=== PATIENT | female | born 1960 | race Caucasian/White ===

== ENCOUNTER 2016-12-29 18:52 | Observation (INO) | payer MEDICAID, SELFPAY ==
[2016-12-29 20:19] LABS: BASO # 0.02 K/mm3 (0.0-2.0); BASO % 0.3 % (0.0-3.0); EOS # 0.1 (0.0-0.7); EOS % 2.3 % (1.5-5.0); GRAN # 3.14 (1.4-6.5); GRAN % 50.8 % (50.0-68.0); HEMATOCRIT 34.3 % (36.0-48.0); LYMPH # 2.4 (1.2-3.4); LYMPH % 38.2 % (22.0-35.0); MEAN CELL VOLUME 90.5 fl (80.0-105.0); MEAN CORPUSCULAR HEMOGLOBIN 30.1 pg (25.0-35.0); MEAN CORPUSCULAR HGB CONC 33.2 g/dl (31.0-37.0); MEAN PLATELET VOLUME 10.3 fl (7.0-11.0); MONO # 0.5 (0.1-0.6); MONO % 8.4 % (1.0-6.0); RED CELL DISTRIBUTION WIDTH 13.1 % (11.5-14.5); WHITE BLOOD COUNT 6.2 10^3/ul (4.5-11.0)
--- NOTE | 2016-12-29 20:19 | ED PDOC ---
Arrival/HPI - General Chief Complaint: High Blood Pressure Time Seen by Provider: 12/29/16 19:13 Historian: Patient - History of Present Illness Narrative History of Present Illness (Text): 12/29/16 20:16 56yo female with history of hypertension present with complaint of elevated BP, chest pain. The daughter who was by the bedside notes that patient's BP is usually around 170/80's. States patient became dizzy, diaphoretic at work and check her BP and it was elevated. Started having nonexertional chest pain afterwards. Pt is currently on HTZ 12.5mg. Daughter states she recently change her PMD. Denies headache, focal weakness, tearing/ripping upper back pain, abdominal pain, nausea, vomiting, visual change, GIBBONS, any other complaint. Past Medical History - Provider Review Nursing Documentation Reviewed: Yes - Infectious Disease Hx of Infectious Diseases: None - Tetanus Immunization Tetanus Immunization: Unknown - Reproductive Menopause: Yes - Cardiac Hx Cardiac Disorders: Yes Hx Hypertension: Yes - Pulmonary Hx Chronic Obstructive Pulmonary Disease (COPD): No - Neurological Hx Parkinson's Disease: No - HEENT Hx Macular Degeneration: No - Renal Hx Renal Cancer: No - Endocrine/Metabolic Hx Endocrine Disorders: No - Hematological/Oncological Hx Anemia: No - Integumentary Hx Melanoma: No - Musculoskeletal/Rheumatological Hx Falls: No - Gastrointestinal Hx Diarrhea: No - Psychiatric Hx Depression: No Hx Emotional Abuse: No Hx Physical Abuse: No Hx Substance Use: No - Surgical History Hx Cholecystectomy: Yes Hx Hysterectomy: Yes (for fibroids) - Anesthesia Hx Anesthesia: Yes Hx Anesthesia Reactions: No - Suicidal Assessment Feels Threatened In Home Enviroment: No Family/Social History - Physician Review Nursing Documentation Reviewed: Yes Family/Social History: Unknown Family HX Smoking Status: Never Smoked Hx Alcohol Use: No Hx Substance Use: No Hx Substance Use Treatment: No Allergies/Home Meds Allergies/Adverse Reactions: Allergies No Known Allergies Allergy (Verified 12/29/16 19:06) Review of Systems - Physician Review All systems were reviewed & negative as marked: Yes - Review of Systems Constitutional: Normal Eyes: Normal ENT: Normal Respiratory: Normal Cardiovascular: Chest Pain Gastrointestinal: Normal Genitourinary Female: Normal Musculoskeletal: Normal Skin: Normal Neurological: Dizziness. absent: Focal Weakness, Gait Changes, Speech Changes, Facial Droop Endocrine: Normal Hemo/Lymphatic: Normal Psychiatric: Normal Physical Exam Vital Signs Reviewed: Yes Vital Signs Temp BP 12/29/16 19:05 198/104 H 12/29/16 18:52 97.9 F Temperature: Afebrile Blood Pressure: Hypertensive Pulse: Regular Respiratory Rate: Normal Appearance: Positive for: Well-Appearing, Non-Toxic, Comfortable Pain Distress: None Mental Status: Positive for: Alert and Oriented X 3 - Systems Exam Head: Present: Atraumatic, Normocephalic Pupils: Present: PERRL Extroacular Muscles: Present: EOMI Conjunctiva: Present: Normal Mouth: Present: Moist Mucous Membranes Neck: Present: Normal Range of Motion Respiratory/Chest: Present: Clear to Auscultation, Good Air Exchange. No: Respiratory Distress, Accessory Muscle Use Cardiovascular: Present: Regular Rate and Rhythm, Normal S1, S2. No: Murmurs Abdomen: Present: Normal Bowel Sounds. No: Tenderness, Distention, Peritoneal Signs Back: Present: Normal Inspection Upper Extremity: Present: Normal Inspection. No: Cyanosis, Edema Lower Extremity: Present: Normal Inspection. No: Edema Neurological: Present: GCS=15, CN II-XII Intact, Speech Normal, Motor Func Grossly Intact, Normal Sensory Function, Normal Cerebellar Funct, Norm Deep Tendon Reflexes, Gait Normal, Memory Normal, Normal 2Pt Descrimination, Other ( No focal neurological deficit) Skin: Present: Warm, Dry, Normal Color. No: Rashes Psychiatric: Present: Alert, Oriented x 3, Normal Insight, Normal Concentration Medical Decision Making ED Course and Treatment: 12/29/16 23:13 PT with history of uncontrolled medication controlling of substernal chest pain and dizziness. Her BP improved in ED without medication. Her first CE was negative. EKG Sinus anival @ 56bpm. No ST changes CXr NAD PT with ulysses pain and co morbidity needs OBS for further evaluation of her CP. ASA was given in ED Case was DW Dr. Nye and he accepted pt into the service Result and plan was DW both pt and the daughter and she agreed. - Lab Interpretations Lab Results: 12/29/16 20:05 12/29/16 20:05 Lab Results 12/29/16 20:05: Sodium 140, Potassium 4.3, Chloride 102, Carbon Dioxide 28, Anion Gap 14, BUN 23 H, Creatinine 1.1, Est GFR ( Amer) > 60, Est GFR ( Non-Af Amer) 51, Random Glucose 108, Calcium 9.5, Magnesium 1.9, Total Bilirubin 0.5, AST 24, ALT 33, Alkaline Phosphatase 80, Lactate Dehydrogenase 462, Total Creatine Kinase 75, Troponin I < 0.01, Total Protein 7.2, Albumin 4.2 , Globulin 2.9, Albumin/Globulin Ratio 1.4 12/29/16 20:05: PT 10.6, INR 0.97, APTT 32.2 12/29/16 20:05: WBC 6.2 D, RBC 3.79, Hgb 11.4 L, Hct 34.3 L, MCV 90.5, MCH 30.1 , MCHC 33.2, RDW 13.1, Plt Count 214, MPV 10.3, Gran % 50.8, Lymph % (Auto) 38.2 H, [place] % (Auto) 8.4 H, Eos % (Auto) 2.3, Baso % (Auto) 0.3, Gran # 3.14, Lymph # 2.4, [place] # 0.5, Eos # 0.1, Baso # 0.02 - RAD Interpretation Radiology Orders: 12/29/16 19:19 CHEST PORTABLE [RAD] Stat - Medication Orders Current Medication Orders: Aspirin (Ecotrin) 81 mg PO DAILY [facility] Hydralazine HCl (Apresoline) 10 mg IVP Q6 PRN PRN Reason: Systolic Blood Pressure Hydrochlorothiazide (Microzide) 12.5 mg PO DAILY [facility] Pantoprazole Sodium (Protonix Inj) 40 mg IVP DAILY [facility] Discontinued Medications Aspirin (Aspirin) 325 mg PO STAT STA Stop: 12/29/16 19:20 Last Admin: 12/29/16 20:11 Dose: 325 mg Meclizine HCl (Antivert) 25 mg PO STAT STA Stop: 12/29/16 19:21 Last Admin: 12/29/16 20:11 Dose: 25 mg Disposition/Present on Arrival - Present on Arrival Any Indicators Present on Arrival: No History of DVT/PE: No History of Uncontrolled Diabetes: No Urinary Catheter: No History of Decub. Ulcer: No History Surgical Site Infection Following: None - Disposition Have Diagnosis and Disposition been Completed?: Yes Diagnosis: Chest pain, Uncontrolled hypertension, Bradycardia Disposition: HOSPITALIZED Disposition Time: 20:45 Patient Problems: Current Active Problems Problem Status Onset Chest pain Acute Uncontrolled hypertension Acute Condition: FAIR
[2016-12-29 20:24] LABS: INR 0.97 (0.93-1.08); PARTIAL THROMBOPLASTIN TIME 32.2 Seconds (25.1-36.5)
[2016-12-29 20:28] LABS: ALB/GLOB RATIO 1.4 (1.1-1.8); ALKALINE PHOSPHATASE 80 U/L (38-126); ALT/SGPT 33 U/L (7-56); AST/SGOT 24 U/L (14-36); BILIRUBIN,TOTAL 0.5 mg/dL (0.2-1.3); BLOOD UREA NITROGEN 23 mg/dL (7-21); CALCIUM 9.5 mg/dL (8.4-10.5); CARBON DIOXIDE 28 mmol/L (21-33); CHLORIDE 102 mmol/L (98-107); GFR AFRICAN-AMERICAN > 60; GLUCOSE,RANDOM 108 mg/dL (70-110); MAGNESIUM 1.9 mg/dL (1.7-2.2); POTASSIUM 4.3 mmol/L (3.6-5.0); SODIUM 140 mmol/L (132-148); TOTAL PROTEIN 7.2 g/dL (5.8-8.3)
[2016-12-29 20:39] LABS: TROPONIN I < 0.01 ng/mL
--- NOTE | 2016-12-29 22:14 | CP.PCM.HP ---
<Daniel Velázquez - Last Filed: 12/30/16 23:10> History of Present Illness - History of Present Illness History of Present Illness: This is a 56 year old female with a past medical history of hypertension who comes in complaining of chest pain that began earlier this day. The patient states that the chest pain starts in the sternal area and radiates to the left arm. The patient is also reporting an elevated blood pressure that was checked at home and was 170's systolic. The patient denies any alleviating or modifying factors. The patient reports a headache in conjunction with the original symptoms. The patient denies any lightheadedness, dizziness abdominal pain, syncopal episodes, diaphoresis, numbness or tingling in the extremities, or any other complaints. PMD: Dr. Blankenship Past medical history: hypertension Medications: HCTZ Past surgical history: Cholecystectomy Allergies: NKDA Family history: Mom and Dad (Diabetes and Hypertension) Social history: Occasional alcohol drinker (Less than 2 beers a week). Denies smoking or illicit drug use. Present on Admission - Present on Admission Any Indicators Present on Admission: No Review of Systems - Constitutional Constitutional: absent: Chills, Night Sweats, Weight Loss - EENT Eyes: absent: Blurred Vision, Diplopia, Irritation, Requires Corrective Lenses, Sees Flashes, Other Visual Disturbances Ears: absent: Decreased Hearing, Ear Discharge, Disequilibrium, Dizziness Nose/Mouth/Throat: absent: Nasal Congestion, Nasal Discharge, Nasal Trauma, Nose Pain, Bleeding Gums, Mouth Lesions, Mouth Pain, Facial Pain - Cardiovascular Cardiovascular: Chest Pain, Chest Pain at Rest. absent: Diaphoresis, Edema, Irregular Heart Rhythm, Orthopnea, Pedal Edema, Syncope - Respiratory Respiratory: absent: Hemoptysis, Dyspnea on Exertion, Stridor, Pain on Inspiration - Gastrointestinal Gastrointestinal: absent: Abdominal Pain, Belching, Bloating, Diarrhea, Dysphagia, Heartburn, Hematochezia, Loose Stools, Melena, Nausea, Vomiting - Musculoskeletal Musculoskeletal: absent: Arthralgias, Myalgias, Stiffness, Tingling - Integumentary Integumentary: absent: Acne, Changing Lesions, Lesions, New Lesions, Striae, Swelling - Neurological Neurological: absent: Abnormal Hearing, Dizziness, Numbness, Vertigo, Weakness - Psychiatric Psychiatric: absent: Abnormal Sleep Pattern, Depression, Mood Swings, Panic Attacks - Endocrine Endocrine: absent: Deepening of Voice, Polydipsia, Polyphagia, Polyuria Past Patient History - Infectious Disease Hx of Infectious Diseases: None - Tetanus Immunizations Tetanus Immunization: Unknown - Past Social History Smoking Status: Never Smoked - CARDIAC Hx Cardiac Disorders: Yes Hx Hypertension: Yes - PULMONARY Hx Chronic Obstructive Pulmonary Disease (COPD): No - NEUROLOGICAL Hx Parkinson's Disease: No - HEENT Hx Macular Degeneration: No - RENAL Hx Renal (Kidney) Cancer: No - ENDOCRINE/METABOLIC Hx Endocrine Disorders: No - HEMATOLOGICAL/ONCOLOGICAL Hx Anemia: No - INTEGUMENTARY Hx Melanoma: No - MUSCULOSKELETAL/RHEUMATOLOGICAL Hx Falls: No - GASTROINTESTINAL Hx Diarrhea: No - PSYCHIATRIC Hx Depression: No Hx Emotional Abuse: No Hx Physical Abuse: No Hx Substance Use: No - SURGICAL HISTORY Hx Cholecystectomy: Yes Hx Hysterectomy: Yes (for fibroids) - ANESTHESIA Hx Anesthesia: Yes Hx Anesthesia Reactions: No Meds Allergies/Adverse Reactions: Allergies Allergy/AdvReac Type Severity Reaction Status Date / Time No Known Allergies Allergy Verified 12/29/16 19:06 Physical Exam - Head Exam Head Exam: ATRAUMATIC, NORMAL INSPECTION, NORMOCEPHALIC - Eye Exam Eye Exam: EOMI, Normal appearance, PERRL. absent: Periorbital tenderness Pupil Exam: NORMAL ACCOMODATION, PERRL. absent: Irregular, Unequal - ENT Exam ENT Exam: Mucous Membranes Moist, Normal Exam. absent: Normal Oropharynx, TM's Normal Bilaterally - Neck Exam Neck exam: Positive for: Normal Inspection. Negative for: Lymphadenopathy, Thyromegaly - Respiratory Exam Respiratory Exam: Clear to Auscultation Bilateral, NORMAL BREATHING PATTERN. absent: Chest Wall Tenderness, Prolonged Expiratory Phase, Wheezes, Respiratory Distress - Cardiovascular Exam Cardiovascular Exam: REGULAR RHYTHM, +S1, +S2. absent: Diastolic murmur, Gallop , JVD, Rubs - GI/Abdominal Exam GI & Abdominal Exam: Normal Bowel Sounds, Soft. absent: Organomegaly, Tenderness - Extremities Exam Extremities exam: Positive for: full ROM, normal inspection. Negative for: joint swelling, pedal edema, tenderness - Back Exam Back exam: NORMAL INSPECTION. absent: CVA tenderness (L), CVA tenderness (R), paraspinal tenderness - Neurological Exam Neurological exam: Alert, CN II-XII Intact, Oriented x3 - Psychiatric Exam Psychiatric exam: Normal Affect, Normal Mood - Skin Skin Exam: Dry, Intact, Normal Color Results - Vital Signs Recent Vital Signs: Last Vital Signs Temp 97.9 F 12/29/16 18:52 Pulse Resp BP 198/104 H 12/29/16 19:05 Pulse Ox - Labs Result Diagrams: 12/30/16 04:25 12/30/16 04:25 Assessment & Plan - Assessment and Plan (Free Text) Assessment: This is a 56 year old female with a past medical history of hypertension who is being admitted for chest pain. Plan: 1.Chest pain r/o ACS -Troponins (-)x1. Trend Troponins. -Cardiology consulted. Will f/u with rec's. -TSH, Hemoglobin A1C, Lipid panel ordered. F/u with results. -Repeat EKG in the A.M. F/u with results. 2. Hypertensive urgency -BP 198 systolic upon admission. -Goal is to reduce systolic by no more than 20% within the first 24 hours. -PRN hydralazine ordered. -Will monitor closely. GI ppx -Protonix DVT ppx -SCD's <John Nye - Last Filed: 12/31/16 19:27> Results - Vital Signs Recent Vital Signs: Last Vital Signs Temp 97.7 F 12/31/16 06:00 Pulse 64 12/31/16 12:00 Resp 18 12/31/16 12:00 BP 129/87 12/31/16 12:00 Pulse Ox 98 12/31/16 06:00 - Labs Result Diagrams: 12/31/16 06:15 12/31/16 06:15 Labs: Laboratory Results - last 24 hr 12/31/16 12/31/16 06:15 06:15 WBC 5.2 RBC 4.49 Hgb 13.4 Hct 40.6 MCV 90.4 MCH 29.8 MCHC 33.0 RDW 13.1 Plt Count 213 MPV 10.4 Gran % 48.7 L Lymph % (Auto) 37.1 H [place] % (Auto) 10.3 H Eos % (Auto) 3.5 Baso % (Auto) 0.4 Gran # 2.51 Lymph # 1.9 Park # 0.5 Eos # 0.2 Baso # 0.02 Sodium 140 Potassium 4.1 Chloride 102 Carbon Dioxide 27 Anion Gap 15 BUN 23 H Creatinine 0.8 Est GFR ( Amer) > 60 Est GFR (Non-Af Amer) > 60 Random Glucose 97 Calcium 9.6 Total Bilirubin 0.9 AST 31 ALT 29 Alkaline Phosphatase 68 Total Protein 7.7 Albumin 4.4 Globulin 3.4 Albumin/Globulin Ratio 1.3 Attending/Attestation - Attestation I have personally seen and examined this patient.: Yes I have fully participated in the care of the patient.: Yes I have reviewed all pertinent clinical information: Yes Notes (Text): 12/31/16 19:26 Patient was seen when she was in the ER. Medical record was reviewed. Agree with history , physical examination, assessment and plan.
[2016-12-29 23:43] LABS: CHOLESTEROL 196 mg/dL (130-200)
[2016-12-30 00:13] VITALS: BMI 28.1
[2016-12-30 00:39] LABS: PH,URINE 5.5 (4.7-8.0); URINE BILIRUBIN NEGATIVE (NEGATIVE); URINE BLOOD TRACE-INTACT (NEGATIVE); URINE GLUCOSE (UA) NEGATIVE (NEGATIVE); URINE KETONE NEGATIVE (NEGATIVE); URINE LEUKOCYTE ESTERASE NEGATIVE Leu/uL (NEGATIVE); URINE PROTEIN NEGATIVE mg/dL (<30 mg/dL); URINE UROBILINOGEN 0.2 E.U./dL (<1 E.U./dL)
[2016-12-30 01:02] LABS: URINE APPEARANCE CLEAR (CLEAR); URINE COLOR YELLOW (YELLOW)
[2016-12-30 01:15] LABS: URINE EPITHELIAL CELLS 0 - 2 /hpf (0-5); URINE RBC 0 - 2 /hpf (0-2); URINE WBC 0 - 2 /hpf (0-6)
[2016-12-30 01:16] LABS: URINE BACTERIA FEW (NEG)
[2016-12-30 04:50] LABS: ALB/GLOB RATIO 1.4 (1.1-1.8); ALKALINE PHOSPHATASE 68 U/L (38-126); ALT/SGPT 20 U/L (7-56); AST/SGOT 24 U/L (14-36); BILIRUBIN,TOTAL 0.8 mg/dL (0.2-1.3); BLOOD UREA NITROGEN 21 mg/dL (7-21); CALCIUM 9.8 mg/dL (8.4-10.5); CARBON DIOXIDE 29 mmol/L (21-33); CHLORIDE 102 mmol/L (98-107); GFR AFRICAN-AMERICAN > 60; GLUCOSE,RANDOM 98 mg/dL (70-110); POTASSIUM 4.2 mmol/L (3.6-5.0); SODIUM 139 mmol/L (132-148); TOTAL PROTEIN 7.3 g/dL (5.8-8.3)
[2016-12-30 04:51] LABS: BASO # 0.03 K/mm3 (0.0-2.0); BASO % 0.6 % (0.0-3.0); EOS # 0.2 (0.0-0.7); EOS % 3.2 % (1.5-5.0); GRAN # 2.31 (1.4-6.5); GRAN % 43.5 % (50.0-68.0); LYMPH # 2.3 (1.2-3.4); LYMPH % 43.6 % (22.0-35.0); MEAN CELL VOLUME 91.1 fl (80.0-105.0); MEAN CORPUSCULAR HEMOGLOBIN 29.3 pg (25.0-35.0); MEAN CORPUSCULAR HGB CONC 32.2 g/dl (31.0-37.0); MEAN PLATELET VOLUME 10.5 fl (7.0-11.0); MONO # 0.5 (0.1-0.6); MONO % 9.1 % (1.0-6.0); RED CELL DISTRIBUTION WIDTH 13.1 % (11.5-14.5); WHITE BLOOD COUNT 5.3 10^3/ul (4.5-11.0)
[2016-12-30 05:21] LABS: TROPONIN I < 0.01 ng/mL
--- NOTE | 2016-12-30 10:29 | RAD ---
HISTORY: admission COMPARISON: 02/03/2013 FINDINGS: LUNGS: No consolidation. Tiny 1 to 3 mm left upper lobe nodular opacities -tiny granulomas are a consideration. Probably similar allowing for differences in technique. PLEURA: No significant pleural effusion identified, no pneumothorax apparent. CARDIOVASCULAR: Top now OSSEOUS STRUCTURES: Bilateral shoulder arthrosis. VISUALIZED UPPER ABDOMEN: Normal. OTHER FINDINGS: None. IMPRESSION: No infiltrate. Probable granulomatous change left upper lobe. Bilateral shoulder arthrosis
--- NOTE | 2016-12-30 13:29 | CP.PCM.PN ---
<Nabor Pratt - Last Filed: 12/30/16 13:22> Subjective - Date & Time of Evaluation Date of Evaluation: 12/30/16 Time of Evaluation: 13:22 - Subjective Subjective: Patient seen and examined at bedside with family at bedside. Patient was admitted overnight for elevated hypertension and chest discomfort after work. No acute events overnight reported via patient. Patient states her chest discomfort has reduced since her admission. Patient denies shortness of breath, abdominal pain, fever, nausea, vomiting, chills. Objective - Vital Signs/Intake and Output Vital Signs (last 24 hours): Temp Pulse Resp BP Pulse Ox 98 F 74 21 100/61 100 12/30/16 11:49 12/30/16 11:49 12/30/16 11:49 12/30/16 11:49 12/30/16 05:54 Intake and Output: 12/30/16 12/30/16 06:59 18:59 Intake Total 120 Output Total 200 Balance -80 - Medications Medications: Current Medications Aspirin (Ecotrin) 81 mg PO DAILY [facility] Last Admin: 12/30/16 09:56 Dose: 81 mg Hydralazine HCl (Apresoline) 10 mg IVP Q6 PRN PRN Reason: Systolic Blood Pressure Hydrochlorothiazide (Hydrodiuril) 25 mg PO DAILY [facility] Pantoprazole Sodium (Protonix Inj) 40 mg IVP DAILY [facility] Last Admin: 12/30/16 09:56 Dose: 40 mg - Labs Labs: 12/30/16 04:25 12/30/16 04:25 PT 10.6 SECONDS (9.4-12.5) 12/29/16 20:05 INR 0.97 (0.93-1.08) 12/29/16 20:05 APTT 32.2 Seconds (25.1-36.5) 12/29/16 20:05 - Constitutional Appears: Well, No Acute Distress - Head Exam Head Exam: ATRAUMATIC, NORMAL INSPECTION, NORMOCEPHALIC - Eye Exam Eye Exam: EOMI, PERRL - ENT Exam ENT Exam: Mucous Membranes Moist - Neck Exam Neck Exam: Full ROM - Respiratory Exam Respiratory Exam: Clear to Ausculation Bilateral, NORMAL BREATHING PATTERN - Cardiovascular Exam Cardiovascular Exam: Bradycardia, REGULAR RHYTHM, +S1, +S2 - GI/Abdominal Exam GI & Abdominal Exam: Soft, Normal Bowel Sounds - Extremities Exam Extremities Exam: Full ROM, Normal Inspection - Back Exam Back Exam: NORMAL INSPECTION. absent: CVA tenderness (L), CVA tenderness (R) - Neurological Exam Neurological Exam: Alert, Awake, CN II-XII Intact, Normal Gait, Oriented x3 - Psychiatric Exam Psychiatric exam: Normal Affect, Normal Mood - Skin Skin Exam: Dry, Intact, Normal Color, Warm Assessment and Plan (1) Bradycardia Status: Acute (2) Chest pain Status: Acute (3) Uncontrolled hypertension Status: Acute - Assessment and Plan (Free Text) Assessment: 56 year old female with a past medical history of hypertension who was admitted for chest pain with rule out of ACS. Cardiology has been consulted and will evaluate the patient with echocardiogram and stress test. Plan: 1. Chest Pain rule out ACS - EKG on admission, interpreted by me, showing sinus bradycardia, No ST segment changes, T wave inversions - Troponins have been negative x3 - Cardiology (Dr. Bernabe) consulted and appreciate recs - Echocardiogram, pending results - Potential stress test for tomorrow - TSH nml, HgA1c 5.4 - Cholesterol panel: CH 196/ TG 123 / LDL 106 / HDL 62 - Patient ACSVD risk 1.9% 2. Hypertension urgency - resolved - BP elevated on admission, systolic 190s, BP now normotensive - Increase HCTZ to 25mg Daily - PRN hyrdralazine 3. Bradycardia - Etiology unkown, diff dx: Hypothyroid vs. Medication effect - TSH normal, medication at home is HCTZ - Asymptomatic - Appropriate increase when ambulating - continue to monitor PPX - GI: protonix - DVT: pt ambulating Patient case and plan reviewed and agreed upon by attending <Yogesh Jewell - Last Filed: 12/30/16 13:55> Objective - Vital Signs/Intake and Output Vital Signs (last 24 hours): Temp Pulse Resp BP Pulse Ox 98 F 74 21 100/61 100 12/30/16 11:49 12/30/16 11:49 12/30/16 11:49 12/30/16 11:49 12/30/16 05:54 Intake and Output: 12/30/16 12/30/16 06:59 18:59 Intake Total 120 Output Total 200 Balance -80 - Medications Medications: Current Medications Aspirin (Ecotrin) 81 mg PO DAILY [facility] Last Admin: 12/30/16 09:56 Dose: 81 mg Hydralazine HCl (Apresoline) 10 mg IVP Q6 PRN PRN Reason: Systolic Blood Pressure Hydrochlorothiazide (Hydrodiuril) 25 mg PO DAILY [facility] - Labs Labs: 12/30/16 04:25 12/30/16 04:25 PT 10.6 SECONDS (9.4-12.5) 12/29/16 20:05 INR 0.97 (0.93-1.08) 12/29/16 20:05 APTT 32.2 Seconds (25.1-36.5) 12/29/16 20:05 Attending/Attestation - Attestation I have personally seen and examined this patient.: Yes I have fully participated in the care of the patient.: Yes I have reviewed all pertinent clinical information, including history, physical exam and plan: Yes Notes (Text): 12/30/16 13:54 Patient was seen and examined with medical technician assistant. Agreed with resident assessment and plan. 56 year old female with a past medical history of hypertension, Obesity is admitted with exertional chest pain, EKG is negative for ischemic changes.Patient troponins are normal.She is scheduled for stress test tomorrow. Management plan was discussed in detail with patient Education was provided.
--- NOTE | 2016-12-30 15:35 | CON ---
DATE: 12/30/2016 REQUESTING PHYSICIAN: Dr. Jewell. REASON FOR CONSULTATION: Chest pain. HISTORY OF PRESENT ILLNESS: This is a 56-year-old woman with a history of hypertension, who presented to the emergency room yesterday with complaints of chest discomfort. Cardiac evaluation was requested. She is seen in the presence of her daughter. She is currently pain free. She apparently underwent a stress test 4 to 5 years ago and was told this was unremarkable. In the emergency room, she was noted to have a markedly elevated blood pressure of 170 to 190 systolic. She denied any headaches. She states she was at work. 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 She described a retrosternal chest discomfort, which was pressure like and radiating to her back. Initial echocardiogram and cardiac enzymes have been negative. PAST MEDICAL HISTORY: Notable for the problems mentioned above. She has undergone a prior cholecystectomy as well as a hysterectomy. MEDICATIONS AT HOME: Hydrochlorothiazide 12.5 mg daily. ALLERGIES: NONE. FAMILY HISTORY: Both parents are , cause unknown. SOCIAL HISTORY: She does not smoke or drink. REVIEW OF SYSTEMS: A 10-point review of systems is otherwise unremarkable. PHYSICAL EXAMINATION: GENERAL: She is an anxious-appearing middle-aged woman. VITAL SIGNS: Her blood pressure is 132/76 with a pulse of 50 to 60 in sinus rhythm, respirations are 16, she is afebrile. HEENT: Normocephalic, atraumatic. NECK: Supple. No JVD noted. CHEST: Clear to auscultation and percussion. HEART: PMI in normal position. No pathological gallops noted. ABDOMEN: Soft, nontender. Normoactive bowel sounds. EXTREMITIES: No clubbing, cyanosis, or edema. SKIN: Warm and dry. PSYCHIATRIC: Normal mood and affect. NEUROLOGIC: Alert and oriented x3. No gross motor or sensory is appreciable. DIAGNOSTIC DATA: Electrocardiogram reveals sinus rhythm with nonspecific ST-T abnormalities. Chest x-ray reveals normal cardiac silhouette with clear lung trivedi. White count 5.3, hemoglobin and hematocrit 11.9 and 37.0 with a platelet count of 206,000. PT/PTT were normal. Potassium of 4.2. BUN and creatinine 21 and 0.9. Two sets of cardiac enzymes are normal. Cholesterol is 196 with an LDL of 106, HDL of 62, triglycerides of 123. IMPRESSION: 1. Chest pain somewhat suspicious for angina by description. 2. History of hypertension with accelerated pattern at the present time. 3. Borderline hyperlipidemia. RECOMMENDATIONS: An echocardiogram will be obtained to assess her left ventricular size and function. If her followup cardiac enzymes are negative, an outpatient stress test can be planned. If she needs to remain in the hospital overnight for adjustment of her antihypertensive therapy, her stress test will be planned for the morning. Thank you for this consultation. I will be happy to follow as needed. Jose J Nelson MD
[2016-12-30 16:44] VITALS: O2SAT 98
--- NOTE | 2016-12-30 16:57 | CARD ---
APPROVED REPORT EKG Measurement Heart [id number] <Conclusion> Marked sinus bradycardia Abnormal ECG
--- NOTE | 2016-12-30 17:06 | CARD ---
APPROVED REPORT EKG Measurement Heart [id number] <Conclusion> Sinus bradycardia Otherwise normal ECG
[2016-12-31 06:09] VITALS: TEMP 97.7
[2016-12-31 06:40] LABS: BASO # 0.02 K/mm3 (0.0-2.0); BASO % 0.4 % (0.0-3.0); EOS # 0.2 (0.0-0.7); EOS % 3.5 % (1.5-5.0); GRAN # 2.51 (1.4-6.5); GRAN % 48.7 % (50.0-68.0); HEMATOCRIT 40.6 % (36.0-48.0); LYMPH # 1.9 (1.2-3.4); LYMPH % 37.1 % (22.0-35.0); MEAN CELL VOLUME 90.4 fl (80.0-105.0); MEAN CORPUSCULAR HEMOGLOBIN 29.8 pg (25.0-35.0); MEAN PLATELET VOLUME 10.4 fl (7.0-11.0); MONO # 0.5 (0.1-0.6); MONO % 10.3 % (1.0-6.0); RED CELL DISTRIBUTION WIDTH 13.1 % (11.5-14.5); WHITE BLOOD COUNT 5.2 10^3/ul (4.5-11.0)
[2016-12-31 06:57] LABS: ALB/GLOB RATIO 1.3 (1.1-1.8); ALKALINE PHOSPHATASE 68 U/L (38-126); ALT/SGPT 29 U/L (7-56); AST/SGOT 31 U/L (14-36); BILIRUBIN,TOTAL 0.9 mg/dL (0.2-1.3); BLOOD UREA NITROGEN 23 mg/dL (7-21); CALCIUM 9.6 mg/dL (8.4-10.5); CARBON DIOXIDE 27 mmol/L (21-33); CHLORIDE 102 mmol/L (98-107); GFR AFRICAN-AMERICAN > 60; GLUCOSE,RANDOM 97 mg/dL (70-110); POTASSIUM 4.1 mmol/L (3.6-5.0); SODIUM 140 mmol/L (132-148); TOTAL PROTEIN 7.7 g/dL (5.8-8.3)
--- NOTE | 2016-12-31 07:39 | CARD ---
APPROVED REPORT EXAM: Two-dimensional and M-mode echocardiogram with Doppler and color Doppler. Other Information Quality : AverageRhythm : INDICATION Hypertension/HCVD Chest Pain 2D DIMENSIONS Left Atrium (2D)4.3 (1.6-4.0cm)IVSd0.9 (0.7-1.1cm) LVDd4.3 (3.9-5.9cm)PWd1.0 (0.7-1.1cm) LVDs3.0 (2.5-4.0cm)FS (%) 30.7 % LVEF (%)58.0 (>50%) M-Mode DIMENSIONS Aortic Root2.80 (2.2-3.7cm)Aortic Cusp Exc.1.70 (1.5-2.0cm) Aortic Valve AoV Peak Uythtcxv382.0cm/s Mitral Valve MV E Amplvyyw63.4cm/sMV A Phzrmigt30.7cm/sE/A ratio0.9 TDI Lateral E' Peak V10.30cm/sMedial E' Peak V5.85cm/sE/Lateral E'8.2 E/Medial E'14.4 Pulmonary Valve PV Peak Rjzccfcf96.7cm/sPV Peak Grad.4mmHg Tricuspid Valve TR Peak Idceurex611sh/sRAP [id number] Peak Gr.30mmHg [id number] LEFT VENTRICLE The left ventricle is normal size. There is normal left ventricular wall thickness. The left ventricular function is normal. The left ventricular ejection fraction is within the normal range. There is normal LV segmental wall motion. RIGHT VENTRICLE The right ventricle is normal size. ATRIA The left atrium is mildly dilated. The right atrium size is normal. The interatrial septum is intact with no evidence for an atrial septal defect. AORTIC VALVE The aortic valve is normal in structure. MITRAL VALVE The mitral valve is normal in structure. Mitral regurgitation is mild. TRICUSPID VALVE The tricuspid valve is normal in structure. There is mild tricuspid regurgitation. PULMONIC VALVE The pulmonic valve is not well visualized. GREAT VESSELS The aortic root is normal in size. PERICARDIAL EFFUSION There is no pericardial effusion. <Conclusion> The left ventricle is normal size. There is normal left ventricular wall thickness. The left ventricular function is normal. Mitral regurgitation is mild. There is mild tricuspid regurgitation.
--- NOTE | 2016-12-31 07:47 | CP.PCM.PN ---
Subjective - Date & Time of Evaluation Date of Evaluation: 12/31/16 Time of Evaluation: 07:00 - Subjective Subjective: Stable on 2R. No chest pain or SOB. V/S noted. RSR 131/86 PE: Lungs: clear Cor: S1S2 Abd.: soft Ext. no edema Neuro.: alert ECG's and labs noted. Trops all neg. Echo: Nl LV fx., Mild MR and TR. Objective - Vital Signs/Intake and Output Vital Signs (last 24 hours): Temp Pulse Resp BP Pulse Ox 97.7 F 47 L 20 131/86 98 12/31/16 06:00 12/31/16 06:00 12/31/16 06:00 12/31/16 06:00 12/31/16 06:00 Intake and Output: 12/31/16 12/31/16 06:59 18:59 Intake Total 360 Balance 360 - Medications Medications: Current Medications Acetaminophen (Tylenol 325mg Tab) 650 mg PO Q6H PRN PRN Reason: Fever >100.4 F or Headache Last Admin: 12/30/16 16:51 Dose: 650 mg Aspirin (Ecotrin) 81 mg PO DAILY [facility] Last Admin: 12/30/16 09:56 Dose: 81 mg Hydralazine HCl (Apresoline) 10 mg IVP Q6 PRN PRN Reason: Systolic Blood Pressure Hydrochlorothiazide (Hydrodiuril) 25 mg PO DAILY [facility] - Labs Labs: 12/31/16 06:15 12/31/16 06:15 PT 10.6 SECONDS (9.4-12.5) 12/29/16 20:05 INR 0.97 (0.93-1.08) 12/29/16 20:05 APTT 32.2 Seconds (25.1-36.5) 12/29/16 20:05 Assessment and Plan - Assessment and Plan (Free Text) Assessment: Chest Pain HBP H/O GB surgery and hysterectomy Plan: Nuclear stress test today. Add amlodipne 5 mg. daily OOB Additional recs to follow ETT.
[2016-12-31 14:02] VITALS: BP 129/87; PULSE 64; RESP 18
--- NOTE | 2016-12-31 15:51 | CP.PCM.DIS ---
<Nabor Pratt - Last Filed: 12/31/16 15:48> Provider - Provider Date of Admission: 12/29/16 21:00 Attending physician: Yogesh Jewell MD Primary care physician: PMD: Dr. Blankenship Consults: Cardiology: Dr. Bernabe Time Spent in preparation of Discharge (in minutes): 25 Diagnosis - Discharge Diagnosis (1) Bradycardia Status: Acute (2) Chest pain Status: Acute (3) Uncontrolled hypertension Status: Acute Hospital Course - Lab Results Lab Results: Most Recent Lab Values WBC 5.2 10^3/ul (4.5-11.0) 12/31/16 06:15 RBC 4.49 10^6/uL (3.5-6.1) 12/31/16 06:15 Hgb 13.4 g/dL (12.0-16.0) 12/31/16 06:15 Hct 40.6 % (36.0-48.0) 12/31/16 06:15 MCV 90.4 fl (80.0-105.0) 12/31/16 06:15 MCH 29.8 pg (25.0-35.0) 12/31/16 06:15 MCHC 33.0 g/dl (31.0-37.0) 12/31/16 06:15 RDW 13.1 % (11.5-14.5) 12/31/16 06:15 Plt Count 213 10^3/uL (120.0-450.0) 12/31/16 06:15 MPV 10.4 fl (7.0-11.0) 12/31/16 06:15 Gran % 48.7 % (50.0-68.0) L 12/31/16 06:15 Lymph % (Auto) 37.1 % (22.0-35.0) H 12/31/16 06:15 Barron % (Auto) 10.3 % (1.0-6.0) H 12/31/16 06:15 Eos % (Auto) 3.5 % (1.5-5.0) 12/31/16 06:15 Baso % (Auto) 0.4 % (0.0-3.0) 12/31/16 06:15 Gran # 2.51 (1.4-6.5) 12/31/16 06:15 Lymph # 1.9 (1.2-3.4) 12/31/16 06:15 Barron # 0.5 (0.1-0.6) 12/31/16 06:15 Eos # 0.2 (0.0-0.7) 12/31/16 06:15 Baso # 0.02 K/mm3 (0.0-2.0) 12/31/16 06:15 PT 10.6 SECONDS (9.4-12.5) 12/29/16 20:05 INR 0.97 (0.93-1.08) 12/29/16 20:05 APTT 32.2 Seconds (25.1-36.5) 12/29/16 20:05 Sodium 140 mmol/L (132-148) 12/31/16 06:15 Potassium 4.1 mmol/L (3.6-5.0) 12/31/16 06:15 Chloride 102 mmol/L (98-107) 12/31/16 06:15 Carbon Dioxide 27 mmol/L (21-33) 12/31/16 06:15 Anion Gap 15 (10-20) 12/31/16 06:15 BUN 23 mg/dL (7-21) H 12/31/16 06:15 Creatinine 0.8 mg/dL (0.7-1.2) 12/31/16 06:15 Est GFR ( Amer) > 60 12/31/16 06:15 Est GFR (Non-Af Amer) > 60 12/31/16 06:15 Random Glucose 97 mg/dL (70-110) 12/31/16 06:15 Hemoglobin A1c 5.4 % (4.2-6.5) 12/29/16 20:05 Calcium 9.6 mg/dL (8.4-10.5) 12/31/16 06:15 Magnesium 1.9 mg/dL (1.7-2.2) 12/29/16 20:05 Total Bilirubin 0.9 mg/dL (0.2-1.3) 12/31/16 06:15 AST 31 U/L (14-36) 12/31/16 06:15 ALT 29 U/L (7-56) 12/31/16 06:15 Alkaline Phosphatase 68 U/L (38-126) 12/31/16 06:15 Lactate Dehydrogenase 462 U/L (333-699) 12/29/16 20:05 Total Creatine Kinase 75 U/L (35-230) 12/29/16 20:05 Troponin I < 0.01 ng/mL 12/30/16 11:30 Total Protein 7.7 g/dL (5.8-8.3) 12/31/16 06:15 Albumin 4.4 g/dL (3.0-4.8) 12/31/16 06:15 Globulin 3.4 gm/dL 12/31/16 06:15 Albumin/Globulin Ratio 1.3 (1.1-1.8) 12/31/16 06:15 Triglycerides 123 mg/dL (35-160) 12/29/16 20:05 Cholesterol 196 mg/dL (130-200) 12/29/16 20:05 LDL Cholesterol Direct 106 mg/dL (0-129) 12/29/16 20:05 HDL Cholesterol 62 mg/dL (29-60) H 12/29/16 20:05 TSH 3rd Generation 2.38 mIU/mL (0.46-4.68) 12/30/16 04:25 Urine Color Yellow (YELLOW) 12/30/16 00:05 Urine Appearance Clear (CLEAR) 12/30/16 00:05 Urine pH 5.5 (4.7-8.0) 12/30/16 00:05 Ur Specific Buna 1.020 (1.005-1.035) 12/30/16 00:05 Urine Protein Negative mg/dL (<30 mg/dL) 12/30/16 00:05 Urine Glucose (UA) Negative mg/dL (NEGATIVE) 12/30/16 00:05 Urine Ketones Negative mg/dL (NEGATIVE) 12/30/16 00:05 Urine Blood Trace-intact (NEGATIVE) H 12/30/16 00:05 Urine Nitrate Negative (NEGATIVE) 12/30/16 00:05 Urine Bilirubin Negative (NEGATIVE) 12/30/16 00:05 Urine Urobilinogen 0.2 E.U./dL (<1 E.U./dL) 12/30/16 00:05 Ur Leukocyte Esterase Negative Gisel/uL (NEGATIVE) 12/30/16 00:05 Urine RBC 0 - 2 /hpf (0-2) 12/30/16 00:05 Urine WBC 0 - 2 /hpf (0-6) 12/30/16 00:05 Ur Epithelial Cells 0 - 2 /hpf (0-5) 12/30/16 00:05 Urine Bacteria Few (NEG) 12/30/16 00:05 - Hospital Course Hospital Course: Patient is a 56 year old female with past medical history of hypertension and borderline hyperlipidemia who presented to the [facility] ED complaining of chest discomfort. Patient was evaluated with EKG showing sinus bradycardia and trending of troponins all of which were negative x3. Cardiology was consulted and due to clinical picture and elevated HTN patient was evaluated with an echocardiogram which showed EF of 58%, no wall motion abnormalities and MR and a nuclear stress test that was normal. Cardiology evaluated the patient and recommended discharge with appropriate outpatient follow up. Patient was hemodynamicallystable and was agreeable and understanding to discharge planning. - Date & Time of H&P Date of H&P: 12/29/16 Time of H&P: 22:03 Discharge Exam - Head Exam Head Exam: ATRAUMATIC, NORMAL INSPECTION, NORMOCEPHALIC - Eye Exam Eye Exam: EOMI, PERRL Pupil Exam: NORMAL ACCOMODATION - ENT Exam ENT Exam: Mucous Membranes Moist - Neck Exam Neck exam: Full Rom - Respiratory Exam Respiratory Exam: Clear to PA & Lateral, NORMAL BREATHING PATTERN, UNREMARKABLE - Cardiovascular Exam Cardiovascular Exam: Bradycardia, REGULAR RHYTHM, +S1, +S2 - GI/Abdominal Exam GI & Abdominal Exam: Normal Bowel Sounds, Soft, Unremarkable. absent: Tenderness - Back Exam Back exam: NORMAL INSPECTION - Neurological Exam Neurological exam: Alert, CN II-XII Intact, Normal Gait, Oriented x3 - Psychiatric Exam Psychiatric exam: Normal Affect, Normal Mood - Skin Skin Exam: Dry, Intact, Normal Color, Warm Discharge Plan - Discharge Medications Prescriptions: hydroCHLOROthiazide [Hydrodiuril] 25 mg PO DAILY #30 tab - Follow Up Plan Condition: FAIR Disposition: HOME/ ROUTINE Instructions: Chest Pain (DC) Additional Instructions: 1. Please follow up with your primary medical doctor with in one week 2. Take medications as prescribed to you 3. Return to the hospital if your symptoms worsen or return <Yogesh Jewell - Last Filed: 01/01/17 15:49> Provider - Provider Date of Admission: 12/29/16 21:00 Attending physician: Yogesh Jewell MD Hospital Course - Lab Results Lab Results: Most Recent Lab Values WBC 5.2 10^3/ul (4.5-11.0) 12/31/16 06:15 RBC 4.49 10^6/uL (3.5-6.1) 12/31/16 06:15 Hgb 13.4 g/dL (12.0-16.0) 12/31/16 06:15 Hct 40.6 % (36.0-48.0) 12/31/16 06:15 MCV 90.4 fl (80.0-105.0) 12/31/16 06:15 MCH 29.8 pg (25.0-35.0) 12/31/16 06:15 MCHC 33.0 g/dl (31.0-37.0) 12/31/16 06:15 RDW 13.1 % (11.5-14.5) 12/31/16 06:15 Plt Count 213 10^3/uL (120.0-450.0) 12/31/16 06:15 MPV 10.4 fl (7.0-11.0) 12/31/16 06:15 Gran % 48.7 % (50.0-68.0) L 12/31/16 06:15 Lymph % (Auto) 37.1 % (22.0-35.0) H 12/31/16 06:15 Barron % (Auto) 10.3 % (1.0-6.0) H 12/31/16 06:15 Eos % (Auto) 3.5 % (1.5-5.0) 12/31/16 06:15 Baso % (Auto) 0.4 % (0.0-3.0) 12/31/16 06:15 Gran # 2.51 (1.4-6.5) 12/31/16 06:15 Lymph # 1.9 (1.2-3.4) 12/31/16 06:15 Barron # 0.5 (0.1-0.6) 12/31/16 06:15 Eos # 0.2 (0.0-0.7) 12/31/16 06:15 Baso # 0.02 K/mm3 (0.0-2.0) 12/31/16 06:15 PT 10.6 SECONDS (9.4-12.5) 12/29/16 20:05 INR 0.97 (0.93-1.08) 12/29/16 20:05 APTT 32.2 Seconds (25.1-36.5) 12/29/16 20:05 Sodium 140 mmol/L (132-148) 12/31/16 06:15 Potassium 4.1 mmol/L (3.6-5.0) 12/31/16 06:15 Chloride 102 mmol/L (98-107) 12/31/16 06:15 Carbon Dioxide 27 mmol/L (21-33) 12/31/16 06:15 Anion Gap 15 (10-20) 12/31/16 06:15 BUN 23 mg/dL (7-21) H 12/31/16 06:15 Creatinine 0.8 mg/dL (0.7-1.2) 12/31/16 06:15 Est GFR ( Amer) > 60 12/31/16 06:15 Est GFR (Non-Af Amer) > 60 12/31/16 06:15 Random Glucose 97 mg/dL (70-110) 12/31/16 06:15 Hemoglobin A1c 5.4 % (4.2-6.5) 12/29/16 20:05 Calcium 9.6 mg/dL (8.4-10.5) 12/31/16 06:15 Magnesium 1.9 mg/dL (1.7-2.2) 12/29/16 20:05 Total Bilirubin 0.9 mg/dL (0.2-1.3) 12/31/16 06:15 AST 31 U/L (14-36) 12/31/16 06:15 ALT 29 U/L (7-56) 12/31/16 06:15 Alkaline Phosphatase 68 U/L (38-126) 12/31/16 06:15 Lactate Dehydrogenase 462 U/L (333-699) 12/29/16 20:05 Total Creatine Kinase 75 U/L (35-230) 12/29/16 20:05 Troponin I < 0.01 ng/mL 12/30/16 11:30 Total Protein 7.7 g/dL (5.8-8.3) 12/31/16 06:15 Albumin 4.4 g/dL (3.0-4.8) 12/31/16 06:15 Globulin 3.4 gm/dL 12/31/16 06:15 Albumin/Globulin Ratio 1.3 (1.1-1.8) 12/31/16 06:15 Triglycerides 123 mg/dL (35-160) 12/29/16 20:05 Cholesterol 196 mg/dL (130-200) 12/29/16 20:05 LDL Cholesterol Direct 106 mg/dL (0-129) 12/29/16 20:05 HDL Cholesterol 62 mg/dL (29-60) H 12/29/16 20:05 TSH 3rd Generation 2.38 mIU/mL (0.46-4.68) 12/30/16 04:25 Urine Color Yellow (YELLOW) 12/30/16 00:05 Urine Appearance Clear (CLEAR) 12/30/16 00:05 Urine pH 5.5 (4.7-8.0) 12/30/16 00:05 Ur Specific Buna 1.020 (1.005-1.035) 12/30/16 00:05 Urine Protein Negative mg/dL (<30 mg/dL) 12/30/16 00:05 Urine Glucose (UA) Negative mg/dL (NEGATIVE) 12/30/16 00:05 Urine Ketones Negative mg/dL (NEGATIVE) 12/30/16 00:05 Urine Blood Trace-intact (NEGATIVE) H 12/30/16 00:05 Urine Nitrate Negative (NEGATIVE) 12/30/16 00:05 Urine Bilirubin Negative (NEGATIVE) 12/30/16 00:05 Urine Urobilinogen 0.2 E.U./dL (<1 E.U./dL) 12/30/16 00:05 Ur Leukocyte Esterase Negative Gisel/uL (NEGATIVE) 12/30/16 00:05 Urine RBC 0 - 2 /hpf (0-2) 12/30/16 00:05 Urine WBC 0 - 2 /hpf (0-6) 12/30/16 00:05 Ur Epithelial Cells 0 - 2 /hpf (0-5) 12/30/16 00:05 Urine Bacteria Few (NEG) 12/30/16 00:05 Attending/Attestation - Attestation I have personally seen and examined this patient.: Yes I have fully participated in the care of the patient.: Yes I have reviewed all pertinent clinical information, including history, physical exam and plan: Yes Notes (Text): 01/01/17 15:48 Patient was seen and examined with medical equipment sales. Agreed with resident assessment and plan. 56 year old female with past medical history of hypertension was admitted with chest pain, serial troponins were normal.EKG was negative for acute ischemic changes.Patient underwent nuclear stress test which is negative for ischemia. She will be discharged home and will follow up with PCP Management plan was discussed in detail with patient Education was provided.
--- NOTE | 2016-12-31 20:41 | CARD ---
APPROVED REPORT Protocol: MIAH Test Type: Sestamibi Stress Test Attending Physician: Dr. Connor Bernabe Referring Physician: Dr. Nereida Hernadez Test Indications: Chest Pain. Height:5 ft 6 in Weight:140lbs Medications: aspirin, apresoline, HCTZ, protonix Medical History: 56 y/o woman with chest pain and HBP. Target HR: 164 bpm Resting ECG: RSR Resting Heart Rate: 71 bpm Resting Blood Pressure: 120/80mmHg Submaximum (85%): 139 bpm POST EXERCISE Reason for Termination: Fatigue, Dyspnea Target HR: No Max HR: 155 bpm 95% of Maximum Predicted HR: 164 bpm Exercise duration: 07:01 min:sec, 3 Stage Exercise capacity: 8.5METs Max Blood Pressure: 142/78mmHg Blood Pressure response to exercise: normal Heart Rate response to exercise: normal Chest Pain: No, none Angina index: 0 Arrhythmia: No, none ST Change: Yes, 1.0 mm upsloping Deviation: 0 mm INTERPRETATION Stress EKG Conclusion: Symptom limited stress test which was negative for chest pain, significant ischemia and arrhythmia. Normal functional capacity. Nuclear scans pending. Signed by Connor Bernabe Electronically Approved: 12/31/2016 13:36:58 EXAM: Myocardial Perfusion STRESS/REST Stress Test Type: Exercise Treadmill Imaging Protocol Rest Spect myocardial perfusion imaging was performed in supine position 45 minutes following the injection of 10.3 mCi of Tc-99 Myoview. At peak stress, the patient was injected intravenously with 10.3mCi of Tc-99 tetrofosmin after an exercise time of 7 minutes and 01 seconds. Gated Stress Spect was performed 60 minutes after intravenous Tc-99 Myoview injection. The images were gated to evaluate regional wall motion and calculate ventricular ejection fraction.Images were reconstructed using backfilter projection method in short horizontal and verticle long axis. Spect slices were generated. LV Perfusion The quality of the study is good. The left ventricle is normal in size. The right ventricle is unremarkable. The lung uptake is within normal limits. The distribution of tracer reveals normal uptake pattern throughout the LV myocardium on the stress study. The rest myocardial perfusion study shows no significant change. Wall Motion Wall motion study shows good contractility of the left ventricle. LVEF = 61%. Conclusion 1. Normal SPECT myocardial perfusion study. 2. Normal gated wall motion of the left ventricle. 3. In comparison with the last study of 02/10/2013, there is no significant change
== END 2016-12-31 17:39 | disposition home or self-care (01) ==
LOC: ED 18:52 → ERH 21:00 → 2RSO 23:40
PROVIDERS: ADMIT Internal Medicine; ATTEND Internal Medicine
DX: R00.1 Bradycardia, unspecified (principal); R07.89 Other chest pain; I10 Essential (primary) hypertension; I16.0 Hypertensive urgency; E66.9 Obesity, unspecified; Z90.49 Acquired absence of other specified parts of digestive tract; Z90.710 Acquired absence of both cervix and uterus; Z82.49 Family history of ischemic heart disease and other diseases of the circulatory system; Z83.3 Family history of diabetes mellitus
CPT/HCPCS: 36415; 71010; 78452; 80053; 80061; 81001; 82550; 83036; 83615; 83735; 84443; 84484; 85025; 85610; 85730; 93005; 93017; 93306; 99285; A9502; C9113; G0378